=== PATIENT | male | born 1980 | race Caucasian/White ===

== ENCOUNTER 2016-07-14 02:06 | Emergency (ER) | payer OTHER ==
[~2016-07-14] VITALS: Ht 180.3 cm; Wt 157.0 kg
[2016-07-14 02:12] VITALS: TEMP 36.9; Ht 180.3 cm; Wt 157.0 kg
[2016-07-14] MEDS ORDERED: MoRPHine SULFATE 10 MG/ML CARP/VIAL IV STA ×2 (02:14→03:47)
[2016-07-14] MEDS ORDERED: ONDANSETRON INJ 2 MG/ML 2 ML VIAL IV STA ×2 (02:14→03:47)
[2016-07-14] MEDS ORDERED: SODIUM CHLORIDE 0.9% 1000ML 1,000 ML IV ONE (02:15)
[2016-07-14 02:27] VITALS: O2SAT 96
[2016-07-14] MEDS ORDERED: OPTIRAY 320 IV PRN (02:30)
[2016-07-14 02:54] LABS: BASO % 0.1 %; BASO ABS # 0.01 K/uL (0-0.2); COMPLETE YES; EOS % 0.9 %; HEMATOCRIT 46.6 % (42-52); IG% 0.3 %; LYMPH % 24.5 %; LYMPH ABS # 1.88 K/uL (1.2-3.4); MEAN CELL VOLUME 91.2 fL (80-100); MEAN CORPUSCULAR HEMOGLOBIN 30.3 pg (25-34); MEAN CORPUSCULAR HGB CONC 33.3 g/dl (32-36); MEAN PLATELET VOLUME 10.5 fL (7.4-10.4); MONO % 7.9 %; NEUT % 66.3 %; PLATELET COUNT 335 K/uL (130-400); RED BLOOD COUNT 5.11 M/uL (4.7-6.1); WHITE BLOOD COUNT 7.68 K/uL (4.8-10.8)
[2016-07-14 03:01] LABS: ISTAT IONIZED CALCIUM 1.12 mmol/l (1.12-1.32)
[2016-07-14 03:20] LABS: BUN/CREATININE RATIO 13.9 (10-20); CALCIUM 8.4 mg/dl (8.5-10.1); CREATININE 1.2 mg/dl (0.60-1.40); POTASSIUM 3.8 mmol/L (3.5-5.1)
[2016-07-14 03:35] LABS: URINE APPEARANCE CLEAR (CLEAR); URINE BILIRUBIN NEG (NEG); URINE COLOR YELLOW; URINE NITRITE NEG (NEG); URINE SPECIFIC GRAVITY 1.023 (1.000-1.030); UROBILINOGEN NEG (NEG); ZZUR CULT IF INDIC CLEAN CATCH NO
[2016-07-14 03:36] LABS: MANUAL MICROSCOPIC REQUIRED? NO; REVIEW REQ? NO
[2016-07-14] MEDS ORDERED: OXYC1TAB3 PO (04:33)
[2016-07-14 04:45] VITALS: BP 130/75; PULSE 93; O2SAT 95
[2016-07-14] MEDS ORDERED: OXYCODONE IR HOME PACK PO ONE (04:45)
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
== END 2016-07-14 04:43 | disposition home or self-care (01) ==
LOC: EDBD 02:06 → C.EDB 02:07
DX: T14.8 Other injury of unspecified body region (principal); V49.40XA Driver injured in collision with unspecified motor vehicles in traffic accident, initial encounter; S09.90XA Unspecified injury of head, initial encounter

== ENCOUNTER → 2016-08-22 | Outpatient (CLI) | payer OTHER ==
[~2016-08-22] MED LIST: OXYC1TAB3 PO
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
== END | disposition home or self-care (01) ==
LOC: C.RAD1850 14:02
PROVIDERS: ATTEND Internal Medicine
DX: M79.671 Pain in right foot (principal)